=== PATIENT | male | born 2000 | race Hispanic/Latino ===

== ENCOUNTER 2022-12-10 01:58 | Emergency (ER) | payer SELFPAY ==
[2022-12-10] MEDS ORDERED: Lorazepam 2 MG/ML VIAL ONE ×2 (02:26→03:10)
[2022-12-10 02:36] LABS: #Basophils 0.1 10x3/uL (0.0-0.2); #Eosinphils 0.6 10x3/uL (0.0-0.5); #Monocytes 1.2 10x3/uL (0.0-1.1); #Neutrophils 5.3 10x3/uL (1.5-8.4); %Basophils 0.6 % (0.0-2.0); %Eosinophils 3.7 % (0.0-6.0); %Lymphocytes 52.3 % (18.0-47.0); %Monocytes 7.8 % (0.0-10.0); %Neutrophils 35.3 % (40.0-75.0); Hematocrit 42.5 % (38.8-50.0); Hemoglobin 14.7 g/dL (13.5-17.5); Mean Corpuscular HGB CONC 34.6 g/dL (32.0-36.0); Mean Corpuscular Hemoglobin 27.8 pg (27.0-33.0); Mean Corpuscular Volume 80.5 fl (81.2-95.1); Mean Platelet Volume 10.3 fl (7.4-10.4); Platelet Count 358 10x3/uL (150-450); RBC Distribution Width 12.7 % (11.5-14.5); Red Blood Cell (RBC) Count 5.28 10x6/uL (4.32-5.72); White Blood Cell (WBC) Count 15.1 10x3/uL (3.5-10.5)
[2022-12-10 02:53] LABS: ALT (SGPT) 134 U/L (8-55); AST (SGOT) 64 U/L (5-34); Albumin 4.7 g/dL (3.5-5.0); Alkaline Phosphatase 86 U/L (40-110); Anion Gap 16 mmol/L (10-20); BUN (Urea Nitrogen) 15 mg/dL (8.9-20.6); Bilirubin, Total 0.3 mg/dL (0.2-1.2); Calc. Creatinine Clearance 0 mL/min (70-130); Calcium 9.4 mg/dL (7.8-10.44); Carbon Dioxide 22 mmol/L (22-29); Chloride 103 mmol/L (98-107); Estimated GFR 79; Globulin 3.3 g/dL (2.4-3.5); Glucose 128 mg/dL (70-105); Potassium 3.3 mmol/L (3.5-5.1); Sodium 138 mmol/L (136-145)
[2022-12-10 03:00] LABS: Troponin I Less than 0.010 ng/mL (< 0.028)
[2022-12-10] MEDS ORDERED: Potassium Chloride 20 MEQ TAB ONE (03:19)
== END 2022-12-10 06:55 | disposition home or self-care (01) ==
LOC: CSHERS 01:58
DX: R00.2 Palpitations (principal); R07.89 Other chest pain; T40.715A Adverse effect of cannabis, initial encounter; R94.4 Abnormal results of kidney function studies; R94.5 Abnormal results of liver function studies
CPT/HCPCS: 71045; 80053; 84484; 85025; 93005; 96374; 96376; J2060